=== PATIENT | male | born 1990 | race Caucasian/White ===

== ENCOUNTER 2023-12-05 20:57 | Emergency (ER) | payer BC ==
[~2023-12-05] VITALS: Ht 172.7 cm; Wt 92.1 kg
[2023-12-05 21:34] VITALS: BP_SYST 130; PULSE 69; RESP 18; TEMP 98.1; O2SAT 97
[2023-12-05] MEDS: MECLIZINE HCL 25 MG TABLET (ANITVERT) PO ONE (23:30)
[2023-12-05] MEDS: METOCLOPRAMIDE HCL 10 MG/2 ML VIAL IVP ONE (23:31)
[2023-12-05] MEDS: NACL 0.9% 1,000 ML IV ONE (23:31)
[2023-12-06] MEDS ORDERED: MECL-261 PO (00:43)
[2023-12-06 00:49] VITALS: BP_SYST 130; PULSE 69; RESP 18; TEMP 98.1; O2SAT 97
== END 2023-12-06 00:49 | disposition home or self-care (01) ==
LOC: SED 20:57
DX: H81.10 Benign paroxysmal vertigo, unspecified ear (principal); R11.2 Nausea with vomiting, unspecified; J45.909 Unspecified asthma, uncomplicated; Z79.899 Other long term (current) drug therapy
CPT/HCPCS: 99283; 96374; 96361; J2765; J7030; J8597